=== PATIENT | male | born 1975 | race Caucasian/White ===

== ENCOUNTER → 2022-02-09 | Outpatient (CLI) | payer SELFPAY ==
[~2022-02-09] MED LIST: AMOX250S5 PO; HYDR118S PO; TETRACAINE PO
== END ==
LOC: LAB 13:55
PROVIDERS: ATTEND Urology
DX: Z01.89 Encounter for other specified special examinations (principal)
CPT/HCPCS: 89321

== ENCOUNTER → 2022-08-24 | Outpatient (CLI) | payer SELFPAY | LOC: RAD 13:46 | PROVIDERS: ATTEND Registered Nurse Critical Care Medicine | DX: Z31.41 Encounter for fertility testing (principal) | CPT/HCPCS: 89321 ==